=== PATIENT | male | born 1990 | race Caucasian/White ===

== ENCOUNTER 2017-07-30 12:30 | Emergency (ER) | payer OTHER ==
[2017-07-30 12:43] VITALS: TEMP 99; BMI 27.1
[2017-07-30] MEDS ORDERED: METOCLOPRAMIDE HCL INJECTION 10 MG/2 ML VIAL IVPB ONE (12:52)
[2017-07-30] MEDS ORDERED: SODIUM CHLORIDE 1,000 ML IV STA (12:52)
[2017-07-30] MEDS ORDERED: ACETAMINOPHEN 1000 MG/100 ML VIAL (NON FORMULARY) IVPB ONE (12:52)
[2017-07-30] MEDS ORDERED: ACETAMINOPHEN INJECTION 100 ML IVPB ONE (12:56)
--- NOTE | 2017-07-30 13:03 | PDOC ---
History of Present Illness - General Chief Complaint: Headache Stated Complaint: HEADACHE Time Seen by Provider: 07/30/17 12:33 - History of Present Illness Initial Comments: 07/30/17 12:59 26 M with no PMH Presents to ED with 4 days of intermittent headaches, chills, and fevers. Pt states that he has felt ill since Thursday of this week. His girlfriend's sister was sick with similar symptoms prior to his getting sick. He reports right sided headache. Denies neck stiffness. States that he has been taking advil with temporary relief of his headache, but it keeps recurring. Pt denies thunderclap headache. Denies worst headache of life. Pt states that he had a similar episode years ago that resolved on its own. Pt denies any visual changes, denies confusion, denies weakness/numbness in any extremity, denies dizziness. Pt reports subjective fevers and chills at home but has not taken his temp. Past History - Past Medical History Allergies/Adverse Reactions: Allergies Allergy/AdvReac Type Severity Reaction Status Date / Time No Known Allergies Allergy Verified 07/30/17 12:34 Home Medications: Ambulatory Orders Acetaminophen [Tylenol] 325 mg PO ONCE 07/30/17 COPD: No Other medical history: ADHD - Suicide/Smoking/Psychosocial Hx Smoking History: Never smoked Hx Alcohol Use: Yes (OCCASIONAL) Drug/Substance Use Hx: No Substance Use Type: None Review of Systems - Review of Systems Comments:: 07/30/17 13:01 "GENERAL/CONSTITUTIONAL: + fever and chills. No weakness. HEAD, EYES, EARS, NOSE AND THROAT: No change in vision. No ear pain or discharge. No sore throat. CARDIOVASCULAR: No chest pain or shortness of breath. RESPIRATORY: No cough, wheezing, or hemoptysis. GASTROINTESTINAL: No nausea, vomiting, diarrhea or constipation. GENITOURINARY: No dysuria, frequency, or change in urination. MUSCULOSKELETAL: No joint or muscle swelling or pain. No neck or back pain. SKIN: No rash NEUROLOGIC: + headache, no neck stiffness, no vertigo, loss of consciousness, or change in strength/sensation. ENDOCRINE: No increased thirst. No abnormal weight change. HEMATOLOGIC/LYMPHATIC: No anemia, easy bleeding, or history of blood clots. ALLERGIC/IMMUNOLOGIC: No hives or skin allergy. " *Physical Exam - Vital Signs Last Vital Signs Temp Pulse Resp BP Pulse Ox 99.0 F 78 16 140/96 99 07/30/17 12:33 07/30/17 12:33 07/30/17 12:33 07/30/17 12:33 07/30/17 12:33 - Physical Exam Comments: 07/30/17 13:01 "GENERAL: Awake, alert, and fully oriented, in no acute distress HEAD: No signs of trauma EYES: PERRLA, EOMI, sclera anicteric, conjunctiva clear ENT: TMs wnl, Auricles normal inspection, hearing grossly normal, nares patent, oropharynx clear without exudates. Moist mucosa NECK: + R sided lymphadenopathy, Normal ROM, supple LUNGS: Breath sounds equal, clear to auscultation bilaterally. No wheezes, and no crackles HEART: Regular rate and rhythm, normal S1 and S2, no murmurs, rubs or gallops ABDOMEN: Soft, nontender, normoactive bowel sounds. No guarding, no rebound. No masses EXTREMITIES: Normal range of motion, no edema. No clubbing or cyanosis. No cords, erythema, or tenderness NEUROLOGICAL: Cranial nerves II through XII intact. 5/5 strength and sensation in all extremities, Normal speech, normal gait, normal cerebellar function SKIN: Warm, Dry, normal turgor, no rashes or lesions noted. " ED Treatment Course - LABORATORY CBC & Chemistry Diagram: 07/30/17 13:10 07/30/17 13:10 - RADIOLOGY Radiology Studies Ordered: Category Date Time Status CHEST PA & LAT [RAD] Stat Radiology 07/30/17 12:52 Ordered Medical Decision Making - Medical Decision Making 07/30/17 13:02 26 M with headache, fevers and chills x 4 days. Likely viral syndrome. Pt with no signs of meningismus on exam, mental status normal with no nuchal rigidity. No red flags for SAH or other acute intracranial pathology. - Labs - CXR, UA - IVF, tylenol, reglan - reassess 07/30/17 15:09 CXR clear Labs unremarkable. Pt reassessed s/p IVF, tylenol, reglan Pt states his headache is significantly improved. Repeat exam continues to show no neuro deficits. Equal strength in all extremities. Steady gait. No cerebellar signs. Normal mental status. I discussed with pt strict return precautions. If headache returns or if he develops any other concerning symptoms, he is to return to ER immediately. Pt expresses understanding. Pt is well appearing, with normal vitals. Clinically stable for DC at this time. I discussed the physical exam findings, ancillary test results and final diagnoses with the patient. I answered all of the patient's questions. The patient was satisfied with the care received and felt comfortable with the discharge plan and treatment plan. The patient agrees to follow up with the primary care physician within 24-72 hours. *DC/Admit/Observation/Transfer Diagnosis at time of Disposition: Headache - Discharge Dispostion Disposition: HOME Condition at time of disposition: Good - Referrals Referrals: Jason Ring MD [Staff Physician] - - Patient Instructions Printed Discharge Instructions: DI for Headache Additional Instructions: You likely have a viral illness. Take tylenol or motrin as needed for headaches and drink plenty of fluids. If you experience worsening headaches, neck stiffness, fevers, vomiting, or any other concerning symptoms, return to the ER immediately. Otherwise, follow up with your primary doctor within 1 week. You should also see a neurologist for further evaluation of your headaches. Call the number provided to make an appointment. - Post Discharge Activity Forms/Work/School Notes: Back to Work - Attestations Physician Attestion: 07/30/17 15:12 I, Dr. Jamal Angelo MD, attest that this document has been prepared under my direction and personally reviewed by me in its entirety. I further attest, that it accurately reflects all work, treatment, procedures and medical decision -making performed by me.
[2017-07-30 13:32] LABS: URINE APPEARANCE Clear; URINE BILIRUBIN 2+ (NEGATIVE); URINE GLUCOSE (UA) Negative (NEGATIVE); URINE KETONE 1+ (NEGATIVE); URINE LEUK ESTERASE Negative (NEGATIVE); URINE NITRITE Negative (NEGATIVE)
[2017-07-30 13:39] LABS: BASO % 1.5 % (0-2.0); EOS % 1.4 % (0-4.5); HEMATOCRIT 47.8 % (35.4-49); HEMOGLOBIN 16.7 GM/dl (11.7-16.9); LYMPH % 11.9 % (8-40); MCH 31.1 pg (25.7-33.7); MEAN PLT VOLUME 8.8 fl (7.5-11.1); MONO % 12.7 % (3.8-10.2); NEUT % 72.5 % (42.8-82.8); PLATELET COUNT 217 K/MM3 (134-434); RBC 5.37 M/mm3 (4.00-5.60); RDW 11.8 % (11.9-15.9); WHITE BLOOD COUNT 10.2 K/mm3 (4.0-10.8)
[2017-07-30 14:45] LABS: URINE BLOOD Trace-lysed (NEGATIVE); URINE COLOR DK YELLOW; URINE PROTEIN 2+ (NEGATIVE)
[2017-07-30 15:00] LABS: ALBUMIN 4.4 g/dl (3.5-5.0); ALK PHOS 64 U/L (32-92); ANION GAP 8 (8-16); BILIRUBIN,TOTAL 1.4 mg/dl (0.2-1.0); BLOOD UREA NITROGEN 13 mg/dl (7-18); CALCIUM 9.5 mg/dl (8.4-10.2); CHLORIDE 101 mmol/L (98-107); CO2 26 mmol/L (22-28); GLUCOSE,RANDOM 96 mg/dl (74-106); POTASSIUM 3.9 mmol/L (3.5-5.1); SGOT/AST 27 U/L (10-42); SGPT/ALT 29 U/L (10-40); SODIUM 135 mmol/L (136-145); TOT PROT 8.1 g/dl (6.4-8.3)
[2017-07-30 15:24] VITALS: BP 142/98; PULSE 68
[2017-07-30] MEDS ORDERED: KETOROLAC TROMETHAMINE 30 MG/1 ML VIAL IVPUSH ONE (15:39)
[2017-07-30] MEDS ORDERED: KETOROLAC TROMETHAMINE 30 MG/1 ML VIAL ONE (15:40)
[2017-07-30 15:47] LABS: EPI CELLS NONE SEEN /HPF; URINE BACTERIA NONE SEEN /hpf (NEGATIVE); URINE RBC 0-1 /hpf (0-3); URINE WBC 0-1 (0-2)
== END 2017-07-30 16:12 | disposition home or self-care (01) ==
LOC: FER 12:30
PROC: 3E033NZ Introduction of Analgesics, Hypnotics, Sedatives into Peripheral Vein, Percutaneous Approach (ICD-10-PCS; principal; 2017-07-30)
PROC: 3E0333Z Introduction of Anti-inflammatory into Peripheral Vein, Percutaneous Approach (ICD-10-PCS; 2017-07-30)
PROC: 3E033GC Introduction of Other Therapeutic Substance into Peripheral Vein, Percutaneous Approach (ICD-10-PCS; 2017-07-30)
PROC: 3E0337Z Introduction of Electrolytic and Water Balance Substance into Peripheral Vein, Percutaneous Approach (ICD-10-PCS; 2017-07-30)
DX: R51 Headache (principal)
CPT/HCPCS: 36415; 71046-TC-FY; 80053; 81003; 81015; 84443; 85025; 86308; 87389; 99283-25; J0131; J7030

== ENCOUNTER 2017-08-27 07:01 | Observation (INO) | payer OTHER ==
[2017-08-27 07:15] VITALS: BMI 27.1
--- NOTE | 2017-08-27 07:31 | PDOC ---
Attending Attestation - HPI HPI: 08/27/17 08:56 The patient is a 26 year old male, with a past medical history of ADHD (not currently on medication), who presents to the emergency department with dizziness since approximately 4PM yesterday afternoon. The patient describes his dizziness as if the room is spinning. He reports that his dizziness persisted even after he laid down and is a/w multiple episodes of NBNB emesis. The patient denies headache. The patient denies fever, chills, shortness of breath, chest pain, abdominal pain, focal weakness/numbness. The patient reports that he is on prednisone taper for an upper respiratory infection. Denies recent travel. Allergies: None reported. Past Surgical History: None reported. Social History: Non-smoker. Reports occasional alcohol use. Denies drug use. - Physicial Exam PE: 08/27/17 08:57 GENERAL: Awake, alert, and fully oriented, in no acute distress, appears uncomfortable. HEAD: No signs of trauma. EYES: PERRLA, EOMI, sclera anicteric, conjunctiva clear. ENT: Auricles normal inspection, hearing grossly normal, nares patent, oropharynx clear without exudates. Moist mucosa. NECK: Normal ROM, supple, no lymphadenopathy, JVD, or masses. LUNGS: Breath sounds equal, clear to auscultation bilaterally. No wheezes, and no crackles. HEART: Regular rate and rhythm, normal S1 and S2, no murmurs, rubs or gallops. ABDOMEN: Soft, nontender, normoactive bowel sounds. No guarding, no rebound. No masses. EXTREMITIES: Normal range of motion, no edema. No clubbing or cyanosis. No cords , erythema, or tenderness. BACK: No midline spinal tenderness in cervical/thoracic/lumbar region. NEUROLOGICAL: Normal speech, cranial nerves intact, negative pronator drift, 5/ 5 strength in all 4 extremities, normal sensation to light touch in all 4 extremities, normal cerebellar exam, normal gait, normal reflexes and tone. SKIN: Warm, dry, normal turgor, no rashes or lesions noted. - Medical Decision Making 08/27/17 10:59 Documentation prepared by Fawn Wilson, acting as medical file clerk for Gigi Turner MD. <Fawn Wilson - Last Filed: 08/27/17 10:59> - Resident Resident Name: Chantel Flores I - ED Attending Attestation I have performed the following: I have examined & evaluated the patient, The case was reviewed & discussed with the resident, I agree w/resident's findings & plan, Exceptions are as noted - Medical Decision Making 08/27/17 08:12 26yo M hx ADHD (no longer on meds for many years) presents to the ED with positional room spinning dizziness since 4pm yesterday a/w N/V. Vitals wnl. Pt appears uncomfortable, and able to illicit sxs by opening eyes. Likely peripheral vertigo, pt has no headache, no focal deficits or risk factors for central vertigo. Plan: -basic labs -UA -IVF, reglan, meclizine -reassess 08/27/17 10:20 pt feels better, able to ambulate in the ED now but still with some room spinning dizziness. Will give valium for more symptom control and reassess Pt offered CTH given persistent sx and recent headache but states he feels better and will f/u as an outpt Will reassess 08/27/17 11:21 Pt persistently with room spinning. Given another 25mg dose of meclizine ( initially got 12.5). If dizziness persistent will consider imaging/neuro c/s. 08/27/17 16:21 CTH neg. Pt persistently vertiginous. Neuro c/s recommends obs, MRI triple study which has been ordered. Pt admitted to hospitalist for further mgmt. <Gigi Turner - Last Filed: 08/28/17 07:57>
--- NOTE | 2017-08-27 07:35 | PDOC ---
History of Present Illness - General Chief Complaint: Lightheaded Stated Complaint: VOMITING/DIZZINESS History Source: Patient, Significant Other Exam Limitations: No Limitations - History of Present Illness Initial Comments: 08/27/17 07:40 Pt is a 26 yo M with PMHx of ADHD (no longer on medication), now presenting with dizziness and vomiting since 4pm yesterday. 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 The dizziness occurs when his eyes are open and when he moved, even while lying down. No hearing loss or tinnitus, no ear discharge. Since 4pm yesterday, he describes up to 40 episodes of recently ingested non bloody vomit. Then he had fever and a sorethroat. Pt feels improvement of the sorethroat since the diagnosis of uveitis, but not complete resolution. The cold cut had been in his fridge for about a week prior. No diarrhea. Pt passed one episode of normal brown stool since the onset of vomiting, and now feels constipated. He only noticed recent abdominal cramps today. Pt describes a generalized headache 2/10, that he does not think is related to the dizziness. He has had similar headaches in the past relieved by exedrine. He is currently on prednisone eye drop taper for uveitis diagnosed about a month ago.Never been diagnosed with a migraine, no hx of seizures. There is no blurring of vision, no facial droop, no hx of bug bites, no joint swelling or rashes. No fever, no neck stiffness, no cough or nasal congestion, no cough, palpitation. No dysuria or hematuria. 08/27/17 08:27 Timing/Duration: constant Severity: moderate Associated Symptoms: reports: nausea/vomiting. denies: chest pain, cough, diaphoresis, fever/chills Past History - Past Medical History Allergies/Adverse Reactions: Allergies Allergy/AdvReac Type Severity Reaction Status Date / Time No Known Allergies Allergy Verified 08/27/17 07:12 Home Medications: Ambulatory Orders Prednisolone 0.12% Ophthalmic [Pred Mild 0.12% -] 1 drop OU BID 08/27/17 COPD: No Psychiatric Problems: Yes (adhd) - Suicide/Smoking/Psychosocial Hx Smoking History: Never smoked Have you smoked in the past 12 months: No Information on smoking cessation initiated: No Hx Alcohol Use: Yes (OCCASIONAL) Drug/Substance Use Hx: No Substance Use Type: None Review of Systems - Review of Systems Able to Perform ROS?: Yes Is the patient limited Romanian proficient: No Constitutional: No: Chills, Fever, Night Sweats HEENTM: Yes: Throat Pain. No: Blurred Vision, Tearing, Nose Congestion Respiratory: No: Cough, Orthopnea, Shortness of Breath, Stridor, Wheezing, Productive cough Cardiac (ROS): No: Chest Pain, Edema, Palpitations, Syncope ABD/GI: Yes: Nausea, Vomiting. No: Abdominal Distended, Abd. Pain w/ defecation , Diarrhea : No: Burning, Dysuria, Frequency, Hematuria Musculoskeletal: No: Joint Pain, Joint Swelling, Neck Pain, Joint Stiffness Neurological: Yes: Headache, Dizziness. No: Numbness, Paresthesia, Seizure, Tingling, Tremors *Physical Exam - Vital Signs Last Vital Signs Temp Pulse Resp BP Pulse Ox 98.2 F 81 18 135/81 95 08/27/17 07:13 08/27/17 07:13 08/27/17 07:13 08/27/17 07:13 08/27/17 07:13 - Physical Exam General Appearance: Yes: Appropriately Dressed, Moderate Distress HEENT: positive: EOMI, MICHELLE, Tonsillar Erythema, Other ( photophobia). negative : Scleral Icterus (L), Muffled/Hoarse voice, Nasal Congestion, Sinus Tenderness Neck: positive: Supple. negative: Tender, Stridor Respiratory/Chest: positive: Lungs Clear, Normal Breath Sounds, Respiratory Distress Cardiovascular: positive: Regular Rate, S1, S2 Gastrointestinal/Abdominal: positive: Tender (Vague tenderness worse in suprapubic and LLQ), Increased Bowel Sounds Musculoskeletal: positive: CVA Tenderness (R) (Vague R flank tenderness) Extremity: positive: Normal Inspection. negative: Coldness Integumentary: positive: Dry, Warm Neurologic: positive: Fully Oriented, Alert, Motor Strength 5/5. negative: EOM Palsy, Facial Droop, Numbness ED Treatment Course - LABORATORY CBC & Chemistry Diagram: 08/27/17 08:01 08/27/17 08:01 Medical Decision Making - Medical Decision Making 08/27/17 08:37 Dizziness prior to nausea and vomiting makes food poisoning less likely Patient appeared to have photophobia without neck stiffness or fever, does not live in a dorm or yarsanism setting but will go ahead and do CBC, CMP Patient had a tender suprapubic area, with a vague R quadrant tenderness UA, Urine culture Will give reglan- for the constipation and headache and give meclizine with 1 L normal saline 08/27/17 08:42 Patient has an elevated WBC-12.2 (on prednisone eye drops x 1 month) with neutrophilia 08/27/17 08:43 Considering peripheral vertigo- dizziness with previous URTI, no associated headache, no hearing loss, 08/27/17 08:54 Pending UA 08/27/17 09:26 BP- sitting 135/86, 112, sitting-132/77, 106 Patient still dizzy, no drift, able to walk Will add PO 5mg valium, and 1L Normal saline 08/27/17 10:23 Patient's step mother came in and discussed with the nurse but left before I could speak with her Concerned about sequence of symptoms-headaches then dizziness Discussed with patient and he does not want a CT head now. Says he can follow up as an outpatient with a neurologist For likely discharge to follow up with an neurologist/ ENT as an outpatient 08/27/17 10:35 Consulted and spoke with DR Simons - he needs CT head, ESR and Lyme titers 08/27/17 11:40 Will put him as ED ob s and [employer] hospitalist 08/27/17 11:[address] head. Patient was signed out to Dr Carrasco to follow up with hospitalist and Dr Simons 08/27/17 12:09 *DC/Admit/Observation/Transfer Diagnosis at time of Disposition: Dizziness, Peripheral vertigo - Discharge Dispostion Disposition: HOME Condition at time of disposition: Fair Admit: No - Referrals Referrals: Venkata Simons MD [Staff Physician] - 1 week (Recent headaches, nausea, vomiting with dizziness. No fevers or neck stiffness. URTI about a month ago, tapering off prednisone eyedrops for uveitis) - Patient Instructions Printed Discharge Instructions: DI for Vertigo Additional Instructions: You were seen here for dizziness and nausea and vomiting after having an upper respiratory tract infection a couple of weeks ago We did blood and urine tests, that did not reveal any problems We gave you IV fluids and medications to make the dizziness better Please do not drive or operate heavy machinery if you still feel dizzy Please follow up with your primary care doctor We are also referring you to a neurologist/and Ear Nose Throat Surgeon If you feel you are not getting better, and have worsening headaches, hearing loss, weakness of any part of your body, please return to the emergency room. - Post Discharge Activity Forms/Work/School Notes: Back to Work - Attestations Physician Attestion: 08/27/17 11:15 Chantel Flores MD
[2017-08-27] MEDS ORDERED: SODIUM CHLORIDE 1,000 ML IV STA (07:39)
[2017-08-27] MEDS ORDERED: ONDANSETRON 4 MG/2 ML VIAL IVPB ONE (07:42)
[2017-08-27] MEDS ORDERED: METOCLOPRAMIDE HCL INJECTION 10 MG/2 ML VIAL IVPUSH ONE (07:48)
[2017-08-27] MEDS ORDERED: MECLIZINE HCL 12.5 MG TABLET PO ONE (07:49)
[2017-08-27] MEDS ORDERED: MECLIZINE HCL 12.5 MG TABLET ONE ×3 (07:53→11:20)
[2017-08-27] MEDS ORDERED: METOCLOPRAMIDE HCL INJECTION 10 MG/2 ML VIAL ONE (07:53)
[2017-08-27 08:27] LABS: BASO % 0.4 % (0-2.0); EOS % 0.8 % (0-4.5); HEMATOCRIT 42.5 % (35.4-49); HEMOGLOBIN 15.1 GM/dL (11.7-16.9); LYMPH % 8.9 % (8-40); MCH 31.4 pg (25.7-33.7); MCHC 35.4 g/dl (32.0-35.9); MEAN CELL VOLUME 88.7 fl (80-96); MEAN PLT VOLUME 8.9 fl (7.5-11.1); MONO % 5.2 % (3.8-10.2); NEUT % 84.7 % (42.8-82.8); PLATELET COUNT 182 K/MM3 (134-434); RBC 4.79 M/mm3 (4.00-5.60); RDW 13.5 % (11.9-15.9); WHITE BLOOD COUNT 12.2 K/mm3 (4.0-10.0)
[2017-08-27 08:44] LABS: ALBUMIN 4.4 g/dl (3.4-5.0); ALK PHOS 64 U/L (45-117); ANION GAP 6 (8-16); BILIRUBIN,TOTAL 1.7 mg/dL (0.2-1.0); BLOOD UREA NITROGEN 17 mg/dL (7-18); CALCIUM 9.2 mg/dL (8.5-10.1); CHLORIDE 105 mmol/L (98-107); CO2 27 mmol/L (21-32); GLUCOSE,RANDOM 100 mg/dL (74-106); POTASSIUM 3.9 mmol/L (3.5-5.1); SGOT/AST 15 U/L (15-37); SGPT/ALT 26 U/L (12-78); SODIUM 138 mmol/L (136-145); TOT PROT 7.7 g/dl (6.4-8.2)
[2017-08-27] MEDS ORDERED: SODIUM CHLORIDE 0.9% 500 ML INFUS.BAG IV ONE ×2 (08:49→10:22)
[2017-08-27 09:42] LABS: URINE APPEARANCE CLEAR; URINE BILIRUBIN NEGATIVE (<2.0 mg/dL); URINE COLOR AMBER; URINE GLUCOSE (UA) NEGATIVE (NEGATIVE); URINE KETONE 2+ (NEGATIVE); URINE LEUK ESTERASE NEGATIVE (NEGATIVE); URINE NITRITE NEGATIVE (NEGATIVE); URINE UROBILINOGEN 4.0 E.U/dl mg/dL (0.2-1.0)
[2017-08-27 09:43] LABS: URINE PROTEIN 1+ (NEGATIVE)
[2017-08-27 09:46] LABS: EPI CELLS RARE /HPF (FEW); URINE MUCUS FEW
[2017-08-27] MEDS ORDERED: diazePAM 5 MG TABLET PO ONE (10:27)
[2017-08-27] MEDS ORDERED: diazePAM 5 MG TABLET ONE (10:29)
[2017-08-27] MEDS ORDERED: MECLIZINE HCL 25 MG TABLET (FP) PO ONE (11:18)
[2017-08-27] MEDS ORDERED: LORATADINE 10 MG TABLET PO ONE (12:14)
--- NOTE | 2017-08-27 12:37 | PDOC ---
*Physical Exam - Vital Signs Last Vital Signs Temp Pulse Resp BP Pulse Ox 98.2 F 70 18 109/65 98 08/27/17 07:13 08/27/17 11:13 08/27/17 07:13 08/27/17 11:13 08/27/17 11:13 - Physical Exam Comments: 08/27/17 12:36 Pt signed out to me by Dr. Flores --26yo M with no real medical history who presented with positional dizziness which can be elicited by opening eyes. Dr. Simons aware of patient as well as hospitalist team. Awaiting CT head and report back to Dr. Simons. ESR and lyme titer added to initial labs ED Treatment Course - LABORATORY CBC & Chemistry Diagram: 08/27/17 08:01 08/27/17 08:01 - ADDITIONAL ORDERS Additional order review: Laboratory Results 08/27/17 08/27/17 09:30 08:01 Sodium 138 Potassium 3.9 Chloride 105 Carbon Dioxide 27 Anion Gap 6 L BUN 17 Creatinine 1.0 Creat Clearance w eGFR > 60 Random Glucose 100 Calcium 9.2 Total Bilirubin 1.7 H AST 15 ALT 26 Alkaline Phosphatase 64 Total Protein 7.7 Albumin 4.4 Urine Color Gloria Urine Appearance Clear Urine pH 5.0 Ur Specific [place] 1.030 Urine Protein 1+ H Urine Glucose (UA) Negative Urine Ketones 2+ H Urine Blood Negative Urine Nitrite Negative Urine Bilirubin Negative Urine Urobilinogen 4.0 e.u/dl Ur Leukocyte Esterase Negative Urine WBC (Auto) 4 Urine RBC (Auto) 4 Ur Epithelial Cells Rare Urine Mucus Few 08/27/17 08:01 RBC 4.79 MCV 88.7 MCHC 35.4 RDW 13.5 MPV 8.9 Neutrophils % 84.7 H Lymphocytes % 8.9 Monocytes % 5.2 Eosinophils % 0.8 Basophils % 0.4 - Medications Given in the ED: ED Medications Discontinued Medications Generic Name Dose Route Start Last Admin Trade Name Freq PRN Reason Stop Dose Admin Diazepam 5 mg 08/27/17 10:27 08/27/17 10:30 Valium - PO 08/27/17 10:28 5 mg ONCE ONE Administration Sodium Chloride 1,000 mls @ 1,000 mls/hr 08/27/17 07:39 08/27/17 08:07 Normal Saline - IV 08/27/17 08:38 1,000 mls/hr ASDIR STA Administration Meclizine HCl 12.5 mg 08/27/17 07:49 08/27/17 08:45 Antivert - PO 08/27/17 07:50 12.5 mg ONCE ONE Administration Meclizine HCl 25 mg 08/27/17 11:18 08/27/17 11:20 Antivert - PO 08/27/17 11:19 25 mg ONCE ONE Administration Metoclopramide HCl 10 mg 08/27/17 07:48 08/27/17 08:07 Reglan Injection - IVPUSH 08/27/17 07:49 10 mg ONCE ONE Administration Ondansetron HCl 4 mg 08/27/17 07:42 08/27/17 08:12 Zofran Injection IVPB 08/27/17 07:43 Not Given ONCE ONE Sodium Chloride 1,000 ml 08/27/17 08:49 08/27/17 08:56 Normal Saline - IV 08/27/17 08:50 1,000 ml ONCE ONE Administration Sodium Chloride 1,000 ml 08/27/17 10:22 08/27/17 10:30 Normal Saline - IV 08/27/17 10:23 1,000 ml ONCE ONE Administration Medical Decision Making - Medical Decision Making 08/27/17 12:43 On reassessment pt remains dizzy, however has slightly improved. Reports the reglan working for his nausea. No nystagmus on physical exam with none elicited with EOMI which remain intact. 08/27/17 13:[address] without any intracranial pathology Pt continues to have dizziness with difficulty walking Discussed with Dr. Simons who will see patient tomorrow Will contact hospitalist team for admission: suspected labrynthitis vs. r/o posterior fossa circulation deficit? --Will likely need MRI *DC/Admit/Observation/Transfer Diagnosis at time of Disposition: Dizziness, Peripheral vertigo - Discharge Dispostion Disposition: HOME Condition at time of disposition: Fair - Referrals - Patient Instructions - Post Discharge Activity
[2017-08-27] MEDS ORDERED: ACETAMINOPHEN 1000 MG/100 ML VIAL (NON FORMULARY) IVPB ONE (15:09)
[2017-08-27] MEDS ORDERED: ACETAMINOPHEN INJECTION 100 ML IVPB ONE (15:10)
--- NOTE | 2017-08-27 15:57 | HP ---
Admitting History and Physical - Admission Chief Complaint: dizziness and vomiting History of Present Illness: This is a 26 year old male with pmhx of ADHD. He presented to the ED after persistent dizziness since 4pm yesterday afternoon with accompanied vomiting > 40 times and unsteady gait. Two weeks ago the patient went to a ENT for swollen cervical lymph nodes, he was prescribed steroids. Following the steroids his throat improved but, he started having head aches, uvitis, and blurry vision. He was prescribed eye drops which improved the uvitis, but the head aches persisted and have continued for the past 2 weeks. He is not photo nor phono sensitive. He is on an eye drop steroid taper and denies recent head trauma. Currently, he is less dizzy then when he came to the ED however the dizziness which he describes as the room spinning worsens with body position changes. He states his head aches are diffuse and came before the dizziness. He denies sick contacts, recent hikes, exposures to chemicals or environmental elements. 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 Pt denies sob, chest pain, rashes, fever, chills. Dizziness improves with eyes closed, eugene hallpike test neg. 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) - Smoking History Smoking history: Never smoked Have you smoked in the past 12 months: No - Alcohol/Substance Use Hx Alcohol Use: Yes (OCCASIONAL) Home Medications - Allergies Allergies/Adverse Reactions: Allergies Allergy/AdvReac Type Severity Reaction Status Date / Time No Known Allergies Allergy Verified 08/27/17 07:12 - Home Medications Home Medications: Ambulatory Orders Prednisolone 0.12% Ophthalmic [Pred Mild 0.12% -] 1 drop OU BID 08/27/17 Review of Systems - Review of Systems Constitutional: reports: No Symptoms Eyes: reports: Blurred Vision HENT: reports: No Symptoms Neck: reports: No Symptoms Cardiovascular: reports: No Symptoms Respiratory: reports: No Symptoms Gastrointestinal: reports: No Symptoms Genitourinary: reports: No Symptoms Musculoskeletal: reports: No Symptoms Integumentary: reports: No Symptoms Neurological: reports: Dizziness Endocrine: reports: No Symptoms Hematology/Lymphatic: reports: No Symptoms Psychiatric: reports: No Symptoms Physical Examination Vital Signs: Vital Signs Temperature 98 F 08/27/17 15:13 Pulse Rate 69 08/27/17 15:13 Respiratory Rate 18 08/27/17 07:13 Blood Pressure 143/87 08/27/17 15:13 O2 Sat by Pulse Oximetry (%) 98 08/27/17 15:13 Constitutional: Yes: Calm Eyes: Yes: Conjunctiva Clear, Other (No nystagmus) HENT: Yes: Atraumatic Neck: Yes: Supple Cardiovascular: Yes: Regular Rate and Rhythm, S1, S2 Respiratory: Yes: Regular, CTA Bilaterally Gastrointestinal: Yes: Normal Bowel Sounds, Soft Musculoskeletal: Yes: WNL Extremities: Yes: WNL Edema: No Integumentary: Yes: WNL Neurological: Yes: Alert, Oriented, Cran Nerves II-XII Intact Labs: CBC, BMP 08/27/17 08:01 08/27/17 08:01 Imaging - Results Cat Scan: Report Reviewed (minimal ethmoid sinusitis) Problem List - Problems (1) Dizziness Code(s): R42 - DIZZINESS AND GIDDINESS (2) Headache Code(s): R51 - HEADACHE Assessment/Plan Assessment: 26 year old male presented with persistent dizziness, head aches, and vomiting. Plan: 1. Persistent Dizziness - CT head noted, mild ethmoid sinusitis - Improved with meclazine; continue PRN - Lyme titer pending - ESR elevated - Brain MRI ordered r/o labyrinthitis - MRA head and neck r/o posterior neck defect - Check EKG - Follow u tox - Neurology consulted 2. Headaches - Diffuse in nature - R/o migraines? vs eye drops? - Defer to neuro 3. Vomiting - Zofran prn 4. Uveitis - Continue drops, pt has own 5. Leukocytosis - Likely due to steroid eye drops 6. HTN - Possibly reactive vs head nani - Trend and treat as needed 6. DVT - SCDs, oob ambulate Visit type - Emergency Visit Emergency Visit: Yes ED Registration Date: 08/27/17 Care time: The patient presented to the Emergency Department on the above date and was hospitalized for further evaluation of their emergent condition. - New Patient This patient is new to me today: Yes Date on this admission: 08/27/17 - Critical Care Critical Care patient: No Hospitalist Screening - Colonoscopy Questionnaire Colonoscopy Questionnaire: Colonoscopy Questionnaire - Patient: 50 - 75 years old and never had a screening colonoscopy: Unknown History of colon or rectal polyps, or CA: Unknown History of IBD, Crohn's disease or UC: Unknown History of abdominal radiation therapy as a child: Unknown - Relative: 1 with colon or rectal CA, or polyps at age 60 or younger: Unknown Colon or rectal CA diagnosed at age 45 or younger: Unknown Multiple relatives with colon or rectal CA: Unknown - Outcome: Screening Result: Negative Screen
[2017-08-27] MEDS ORDERED: ONDANSETRON 4 MG/2 ML VIAL IVPUSH PRN (16:11)
[2017-08-27 19:28] LABS: COCAINE, UR NEGATIVE ng/ml (CUTOFF=300); METHADONE, UR NEGATIVE ng/ml (CUTOFF=300); OPIATES, URI NEGATIVE ng/ml (CUTOFF=300); PHENCYCLIDINE,URINE NEGATIVE ng/ml (CUTOFF=25); URINE AMPHETAMINES NEGATIVE ng/ml (CUTOFF=500); URINE BARBITURATES NEGATIVE ng/ml (CUTOFF=200)
[2017-08-27 19:30] LABS: URINE BENZODIAZEPINES POSITIVE ng/ml (CUTOFF=200)
--- NOTE | 2017-08-27 21:10 | CONSULT ---
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 6 weeks ago he developed diffuse cervical lymphadenopathy and pressing headaches. He was given prednisone by ENT (Dr. Diaz) and both headaches and swelling resolved over a few weeks. He recalls having this symptom complex " many years ago." As the swelling and headaches were resolving, about 3 weeks ago , he developed blurred vision and red eyes. He saw Dr. Brad Vásquez who diagnosed bilateral Uveitis and gave prednisone gtts. Yesterday, around 4 PM, the patient developed severe vertigo, nausea, vomiting and unsteady gait that persisted through the night. No tinnitus. No hearing loss. No concurrent headache. CT of head (reviewed): Normal MRI of brain (reviewed) normal MR Angio of the neck and brain (reviewed but not yet officially read): possible bead-like constrictions of the intracavernous carotids (R>L). Patient is much more comfortable on meclizine 25 TID. DELANEY: Normal NEURO: MS/speech: Normal CN II-XII normal except for a few beats of vertical nystagmus on upgaze Motor: No drift or tremor. Normal strength, bulk, tone and reflexes. Toes downgoing Coord: No FTN or HTS dystaxia Sensory: Normal. Romberg - Gait: slightly wide-based. IMP: Non-focal neurological exam Vertigo, probably on a Labyrinthine basis. SUGGEST: Continue meclizine 25 mg PO q 8 hrs until Pt is free of vertigo x 48 hrs. Await official reading of MR Angiogram (R/O CLERICAL SUPPORT Vasculitis). F/U Dr. Vásquez. Etiology of Uveitis? Lymphadenopathy? Neuro F/U as out patient. Thank you very much, Venkata Simons MD
[2017-08-27] MEDS: prednisoLONE ACETATE 0.12% OPTH SUSP- 5 ML BOTTLE OU SCH (22:28)
[2017-08-27] MEDS: ACETAMINOPHEN 325 MG TABLET (FP) PO PRN (22:32)
[2017-08-28] MEDS: ACETAMINOPHEN 325 MG TABLET (FP) PO PRN ×2 (05:06→18:54)
[2017-08-28] MEDS: MECLIZINE HCL 25 MG TABLET (FP) PO PRN ×2 (05:15→14:09)
[2017-08-28 07:27] LABS: BASO % 0.5 % (0-2.0); EOS % 2.6 % (0-4.5); HEMOGLOBIN 13.4 GM/dL (11.7-16.9); LYMPH % 21.4 % (8-40); MCH 31.3 pg (25.7-33.7); MCHC 35.2 g/dl (32.0-35.9); MEAN CELL VOLUME 88.9 fl (80-96); MONO % 11.7 % (3.8-10.2); NEUT % 63.8 % (42.8-82.8); PLATELET COUNT 156 K/MM3 (134-434); RBC 4.28 M/mm3 (4.00-5.60); WHITE BLOOD COUNT 7.7 K/mm3 (4.0-10.0)
[2017-08-28 07:40] LABS: ALBUMIN 3.6 g/dl (3.4-5.0); BILIRUBIN,TOTAL 1.4 mg/dL (0.2-1.0); BLOOD UREA NITROGEN 9 mg/dL (7-18); CHLORIDE 106 mmol/L (98-107); GLUCOSE,RANDOM 88 mg/dL (74-106); PHOSPHOROUS 3.5 mg/dL (2.5-4.9); POTASSIUM 3.7 mmol/L (3.5-5.1); SGOT/AST 12 U/L (15-37); SODIUM 138 mmol/L (136-145); TOT PROT 6.6 g/dl (6.4-8.2)
[2017-08-28 07:43] LABS: ALK PHOS 52 U/L (45-117); ANION GAP 8 (8-16); CALCIUM 8.3 mg/dL (8.5-10.1); CO2 24 mmol/L (21-32); CREATININE 0.8 mg/dL (0.7-1.3); SGPT/ALT 19 U/L (12-78)
--- NOTE | 2017-08-28 09:39 | EKG ---
Test Reason : Blood Pressure : / mmHG Vent. Rate : 060 BPM Atrial Rate : 060 BPM P-R Int : 158 ms QRS Dur : 086 ms QT Int : 408 ms P-R-T Axes : 020 049 026 degrees QTc Int : 408 ms NORMAL SINUS RHYTHM WITH SINUS ARRHYTHMIA NO PREVIOUS ECGS AVAILABLE Confirmed by JIGAR YORK MD ([id number]) on 08/28/2017 9:38:26 AM Referred By: Confirmed By:JIGAR YORK MD
[2017-08-28] MEDS ORDERED: PT OWN MED DRAWER 7, Y5N ONE ×2 (09:45→14:07)
[2017-08-28] MEDS: prednisoLONE ACETATE 0.12% OPTH SUSP- 5 ML BOTTLE OU SCH ×2 (09:49→21:05)
[2017-08-28] MEDS: ACETAMINOPHEN/CAFFEINE/BUTALBITAL 1 TAB PO PRN ×2 (09:49→16:15)
--- NOTE | 2017-08-28 16:22 | PN ---
Physical Exam: SUBJECTIVE: Patient seen in the solarium with his step mother in attendance. Patient reports resolution of the vomiting wants to eat. Feels feverish. OBJECTIVE: Vital Signs Period Temp Pulse Resp BP Sys/Garcia Pulse Ox Last 24 Hr 98.0 F-100.6 F 76-83 18-20 119-152/67-92 97-100 GENERAL: The patient is awake, alert, and fully oriented, in no acute distress. HEAD: Normal with no signs of trauma. EYES: PERRL, extraocular movements intact, sclera anicteric, conjunctiva clear. No ptosis. ENT: Ears normal, nares patent, oropharynx clear without exudates, moist mucous membranes. NECK: Trachea midline, full range of motion, supple. ABDOMEN: Soft, nontender, nondistended, normoactive bowel sounds, no guarding, no rebound, no hepatosplenomegaly, no masses. EXTREMITIES: no edema. NEUROLOGICAL: Normal speech, gait not observed. PSYCH: Normal mood, normal affect. SKIN: Warm, dry, normal turgor, no rashes or lesions noted Laboratory Results - last 24 hr 08/27/17 08/28/17 08/28/17 18:45 05:35 05:35 WBC 7.7 D RBC 4.28 Hgb 13.4 D Hct 38.0 MCV 88.9 MCH 31.3 MCHC 35.2 RDW 13.0 Plt Count 156 MPV 9.0 Neutrophils % 63.8 D Lymphocytes % 21.4 D Monocytes % 11.7 H D Eosinophils % 2.6 D Basophils % 0.5 ESR Sodium 138 Potassium 3.7 Chloride 106 Carbon Dioxide 24 Anion Gap 8 BUN 9 D Creatinine 0.8 Creat Clearance w eGFR > 60 Random Glucose 88 Calcium 8.3 L Phosphorus 3.5 Magnesium 2.0 Total Bilirubin 1.4 H AST 12 L ALT 19 D Alkaline Phosphatase 52 C-Reactive Protein Total Protein 6.6 Albumin 3.6 Opiates Screen Negative Methadone Screen Negative Barbiturate Screen Negative Phencyclidine Screen Negative Ur Amphetamines Screen Negative MDMA (Ecstasy) Screen Negative Benzodiazepines Screen Positive Cocaine Screen Negative U Marijuana (THC) Screen Negative Rheumatoid Factor 08/28/17 08/28/17 12:05 12:05 WBC RBC Hgb Hct MCV MCH MCHC RDW Plt Count MPV Neutrophils % Lymphocytes % Monocytes % Eosinophils % Basophils % ESR 23 H Sodium Potassium Chloride Carbon Dioxide Anion Gap BUN Creatinine Creat Clearance w eGFR Random Glucose Calcium Phosphorus Magnesium Total Bilirubin AST ALT Alkaline Phosphatase C-Reactive Protein 2.3 H Total Protein Albumin Opiates Screen Methadone Screen Barbiturate Screen Phencyclidine Screen Ur Amphetamines Screen MDMA (Ecstasy) Screen Benzodiazepines Screen Cocaine Screen U Marijuana (THC) Screen Rheumatoid Factor < 10.0 Active Medications Generic Name Dose Route Start Last Admin Trade Name Freq PRN Reason Stop Dose Admin Acetaminophen 650 mg 08/27/17 16:11 08/28/17 05:06 Tylenol - PO 650 mg Q4H PRN Administration HEADACHE 1-6 Acetaminophen/Butalbital/Caffeine 1 tablet 08/28/17 09:32 08/28/17 16:15 Fioricet - PO 1 tablet Q6H PRN Administration HEADACHE 7-10 Meclizine HCl 25 mg 08/27/17 16:13 08/28/17 14:09 Antivert - PO 25 mg Q8H PRN Administration VERTIGO Ondansetron HCl 4 mg 08/27/17 16:11 Zofran Injection IVPUSH Q6H PRN NAUSEA Prednisolone Acetate 1 drop 08/27/17 22:00 08/28/17 09:49 Pred Mild 0.12% - OU 1 drop BID YUMIKO Administration ASSESSMENT/PLAN: Patient is a 26 year old male with a significant past medical history of ADD. Approximately 6 weeks ago he developed diffuse cervical lymphadenopathy and headaches. He was given prednisone by ENT and both headaches and swelling improved. About 3 weeks ago, he developed blurred vision and red eyes. He saw Dr. Brad Vásquez who diagnosed bilateral Uveitis and gave prednisone gtts. However on 08/26, patient developed severe vertigo, nausea, vomiting and unsteady gait that persisted through the night. He also reports a headache not relieved with Tylenol. Neuro: Persistent dizziness, improving On Meclazine with some improvement CT head noted Lymes titer pending ESR, Rheumatoid factor, ELAINE screening sent, discussed with neuro EKG: SR with sinus arrhythmia Brain MRI: no abnormality, paranasal sinus disease Head CT: negative MRA neck/head: no evidence of large vessel stenosis or occulusion Utox: + benzos Rheumatology consulted Headaches, improving Started on Fiorocet Uveitis Continue home eye drops GI: Vomiting, resolved Zofran as needed Regular diet Heme: Leukocytosis, resolved Febrile overnight and this a.m. Blood cultures sent F.E.N. Fluids: Tolerating PO Electrolytes: monitor Nutrition: regular diet Prophy: Ambulation GI: deferred Visit type - Emergency Visit Emergency Visit: Yes ED Registration Date: 08/27/17 Care time: The patient presented to the Emergency Department on the above date and was hospitalized for further evaluation of their emergent condition. - New Patient This patient is new to me today: Yes Date on this admission: 08/31/17 - Critical Care Critical Care patient: No - Discharge Referral Referred to [facility] Med [facility] No
--- NOTE | 2017-08-28 18:27 | CONSULT ---
Consult Consult Specialty:: Rheumatology - History of Present Illness History of Present Illness: 26 year old male with no significant PMHx admitted with vertigo and fever and recent onset of headache, neck lymphadenopathy and bilateral uveitis. HPI. 6 weeks ago the patient developed severe headache and few days later neck pain, red eyes and cloudy vision. He was seen in an [facility] center, he did not have fever and was found to have neck lymphadenopathy. He was seen by ENT who prescribed Prednisone and antibiotics resulting in significant improvement of the tender lymphadenopathy. He was seen by ophtalmology (Dr. Vásquez), diagnosed with uveitis and started topical steroids resulting in significant improvement after 1 week. Yesterday the patient developed vertigo with nausea, vomiting and unsteady gait. At the present time the vertigo improved significantly and he has minimal headache. Yesterday the T max was 100.6 and presently it is 98.1. Recently the patient had a canker sore and he denies skin rash, joint pain or shortness of breath Work-up in the hospital: CT of head, MRI of brain, MR Angio of the neck and brain all normal. SMA-7 and livr function tests were normal. ESR 19 and CRP 2.3 (N<0.3) and urinalysis wiht protein 1+. 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) - Alcohol/Substance Use Hx Alcohol Use: Yes (OCCASIONAL) - Smoking History Smoking history: Never smoked Have you smoked in the past 12 months: No Home Medications - Allergies Allergies/Adverse Reactions: Allergies Allergy/AdvReac Type Severity Reaction Status Date / Time No Known Allergies Allergy Verified 08/27/17 07:12 - Home Medications Home Medications: Ambulatory Orders Prednisolone 0.12% Ophthalmic [Pred Mild 0.12% -] 1 drop OU BID 08/27/17 Review of Systems - Review of Systems Constitutional: reports: Malaise Eyes: reports: Blurred Vision, Other (red eyes) HENT: reports: No Symptoms Neck: reports: Swollen Glands Cardiovascular: reports: No Symptoms Respiratory: reports: No Symptoms Gastrointestinal: reports: No Symptoms Musculoskeletal: reports: No Symptoms Neurological: reports: Other (vertigo) Physical Exam Vital Signs: Vital Signs Temperature 98.1 F 08/28/17 16:20 Pulse Rate 80 08/28/17 16:20 Respiratory Rate 20 08/28/17 16:20 Blood Pressure 126/73 08/28/17 16:20 O2 Sat by Pulse Oximetry (%) 97 08/28/17 12:00 Constitutional: Yes: No Distress Eyes: Yes: WNL HENT: Yes: WNL Neck: Yes: WNL Cardiovascular: Yes: WNL Respiratory: Yes: WNL Gastrointestinal: Yes: WNL Musculoskeletal: Yes: WNL Integumentary: Yes: WNL Labs: CBC, BMP 08/28/17 05:35 08/28/17 05:35 Laboratory Tests 08/27/17 08/27/17 08/28/17 09:30 12:06 05:35 ESR 19 H Random Glucose 88 Calcium 8.3 L Phosphorus 3.5 Magnesium 2.0 AST 12 L Alkaline Phosphatase 52 C-Reactive Protein Total Protein 6.6 Albumin 3.6 Urine pH 5.0 Ur Specific [place] 1.030 Urine Protein 1+ H Urine Glucose (UA) Negative Urine Ketones 2+ H Urine Blood Negative Urine Nitrite Negative Urine Bilirubin Negative Urine Urobilinogen 4.0 e.u/dl Ur Leukocyte Esterase Negative Urine WBC (Auto) 4 Urine RBC (Auto) 4 Rheumatoid Factor 08/28/17 12:05 ESR Random Glucose Calcium Phosphorus Magnesium AST Alkaline Phosphatase C-Reactive Protein 2.3 H Total Protein Albumin Urine pH Ur Specific [place] Urine Protein Urine Glucose (UA) Urine Ketones Urine Blood Urine Nitrite Urine Bilirubin Urine Urobilinogen Ur Leukocyte Esterase Urine WBC (Auto) Urine RBC (Auto) Rheumatoid Factor < 10.0 Problem List - Problems (1) Systemic involvement of connective tissue Assessment/Plan: 26 year old male with headaches, neck lymphadenopathy, bilateral uveitis, fever and vertigo. Etiology to be determined. Rule out sarcoidosis? other? Plan: CXR, HOWARD, ch50, anti-DNAds. Code(s): M35.9 - SYSTEMIC INVOLVEMENT OF CONNECTIVE TISSUE, UNSPECIFIED
[2017-08-28 23:44] LABS: URINE APPEARANCE CLEAR; URINE BILIRUBIN NEGATIVE (<2.0 mg/dL); URINE COLOR STRAW; URINE GLUCOSE (UA) NEGATIVE (NEGATIVE); URINE KETONE NEGATIVE (NEGATIVE); URINE LEUK ESTERASE NEGATIVE (NEGATIVE); URINE NITRITE NEGATIVE (NEGATIVE); URINE PROTEIN NEGATIVE (NEGATIVE)
[2017-08-29] MEDS: ACETAMINOPHEN/CAFFEINE/BUTALBITAL 1 TAB PO PRN ×3 (00:53→14:53)
[2017-08-29] MEDS: MECLIZINE HCL 25 MG TABLET (FP) PO PRN ×2 (00:58→10:58)
[2017-08-29] MEDS ORDERED: PT OWN MED DRAWER 7, Y5N ONE (09:25)
[2017-08-29] MEDS: prednisoLONE ACETATE 0.12% OPTH SUSP- 5 ML BOTTLE OU SCH (09:48)
[2017-08-29 15:41] VITALS: BP 138/82; PULSE 82; TEMP 98.6
[2017-08-29 16:10] LABS: BASO % 0.4 % (0-2.0); EOS % 4.5 % (0-4.5); HEMATOCRIT 40.4 % (35.4-49); HEMOGLOBIN 14.6 GM/dL (11.7-16.9); LYMPH % 28.6 % (8-40); MCH 32.1 pg (25.7-33.7); MCHC 36.2 g/dl (32.0-35.9); MEAN CELL VOLUME 88.6 fl (80-96); MEAN PLT VOLUME 8.9 fl (7.5-11.1); MONO % 11.4 % (3.8-10.2); NEUT % 55.1 % (42.8-82.8); PLATELET COUNT 182 K/MM3 (134-434); RBC 4.56 M/mm3 (4.00-5.60); RDW 13.3 % (11.9-15.9); WHITE BLOOD COUNT 6.7 K/mm3 (4.0-10.0)
[2017-08-29 16:24] LABS: ALBUMIN 3.8 g/dl (3.4-5.0); ANION GAP 7 (8-16); BLOOD UREA NITROGEN 7 mg/dL (7-18); CALCIUM 8.5 mg/dL (8.5-10.1); CHLORIDE 104 mmol/L (98-107); CO2 28 mmol/L (21-32); GLUCOSE,RANDOM 81 mg/dL (74-106); MAGNESIUM 2.1 mg/dL (1.8-2.4); POTASSIUM 3.9 mmol/L (3.5-5.1); SODIUM 139 mmol/L (136-145)
[2017-08-29 16:27] LABS: ALK PHOS 58 U/L (45-117); BILIRUBIN,TOTAL 0.8 mg/dL (0.2-1.0); SGOT/AST 11 U/L (15-37); SGPT/ALT 21 U/L (12-78); TOT PROT 7.2 g/dl (6.4-8.2)
--- NOTE | 2017-08-29 17:04 | PN ---
Progress Note (short form) - Note Progress Note: NEUROLOGY FOLLOW-UP: Events reviewed and discussed with Pedrito Valentino. Afebrile today (Tmax=99). Dizziness is much improved on Meclizine 25 mg q8hrs. Pt denies headache now but reiterates that he had headaches 3-4 weeks ago when he had swollen glands. WBC= 6.7K; ESR=23 mm/hr; CRP=2.3 mg%; 1+proteinuria. Dr. Koch's Rheum consult read and appreciated. Possible MCTD. Awaiting ELAINE, Lyme titre and ID consult. MRI ofbrain and MR angio: Normal EXAM: Neck supple. Afebrile Awake, alert, In NAD CN: Normal aside from a few beats of conjugate right-beating nystagmus on right gaze No drift or tremor. Normal strength and reflexes. No FTN Dystaxia Normal gait incl base and tandem today. IMP: Labyrinthitis- improving. Etiology uncertain. SUGGEST: Await Lyme, Rheum w/u and ID opinion. D/C on Meclizine 25 mg q 8 hrs until Pt is free of vertigo x 48 hrs. Outpt f/u with Neuro, Rheum, ophthalmology, ENT and ID (if indicated). Thank you very much, Venkata Simons MD
--- NOTE | 2017-08-29 19:11 | DS ---
Physical Exam: SUBJECTIVE: Patient seen and examined, family at bedside. Father and step mom spoke to Dr. Simons regarding a possible LP procedure. Patient in agreement to follow up with ID (Dr. Vargas) on Thursday. Patient to call for an appointment. OBJECTIVE: HIV negative, tested on 07/29/2017 Lyme titer 1.81, discussed titer results with Dr. Simons and Dr. Vargas. Patient to follow up with ID on Thursday, for further workup. Denies dizziness prior to discharge, gait steady Meclizine and Fiorocet as outpatient Afebrile overnight Vital Signs Period Temp Pulse Resp BP Sys/Garcia Pulse Ox Last 24 Hr 98.3 F-99.6 F 68-92 18-20 132-140/71-82 98-98 PHYSICAL EXAM GENERAL: The patient is awake, alert, and fully oriented, in no acute distress. HEAD: Normal with no signs of trauma. EYES: PERRL, extraocular movements intact, sclera anicteric, conjunctiva clear. No ptosis. ENT: Ears normal, nares patent, oropharynx clear without exudates, moist mucous membranes. NECK: Trachea midline, full range of motion, supple. ABDOMEN: Soft, nontender, nondistended, normoactive bowel sounds, no guarding, no rebound, no hepatosplenomegaly, no masses. EXTREMITIES: no edema. NEUROLOGICAL: Normal speech, gait not observed. PSYCH: Normal mood, normal affect. SKIN: Warm, dry, normal turgor, no rashes or lesions noted LABS Laboratory Results - last 24 hr 08/27/17 08/28/17 08/29/17 12:00 20:24 15:45 WBC 6.7 RBC 4.56 Hgb 14.6 Hct 40.4 MCV 88.6 MCH 32.1 MCHC 36.2 H RDW 13.3 Plt Count 182 MPV 8.9 Neutrophils % 55.1 Lymphocytes % 28.6 D Monocytes % 11.4 H Eosinophils % 4.5 Basophils % 0.4 Sodium Potassium Chloride Carbon Dioxide Anion Gap BUN Creatinine Creat Clearance w eGFR Random Glucose Calcium Magnesium Total Bilirubin AST ALT Alkaline Phosphatase Total Protein Albumin Urine Color Straw Urine Appearance Clear Urine pH 7.0 D Ur Specific [place] 1.004 Urine Protein Negative Urine Glucose (UA) Negative Urine Ketones Negative Urine Blood Negative Urine Nitrite Negative Urine Bilirubin Negative Urine Urobilinogen 2.0 Ur Leukocyte Esterase Negative Lyme Disease IgG/IgM 1.81 H 08/29/17 15:45 WBC RBC Hgb Hct MCV MCH MCHC RDW Plt Count MPV Neutrophils % Lymphocytes % Monocytes % Eosinophils % Basophils % Sodium 139 Potassium 3.9 Chloride 104 Carbon Dioxide 28 Anion Gap 7 L BUN 7 D Creatinine 1.0 D Creat Clearance w eGFR > 60 Random Glucose 81 Calcium 8.5 Magnesium 2.1 Total Bilirubin 0.8 D AST 11 L ALT 21 Alkaline Phosphatase 58 Total Protein 7.2 Albumin 3.8 Urine Color Urine Appearance Urine pH Ur Specific [place] Urine Protein Urine Glucose (UA) Urine Ketones Urine Blood Urine Nitrite Urine Bilirubin Urine Urobilinogen Ur Leukocyte Esterase Lyme Disease IgG/IgM HOSPITAL COURSE: Date of Admission:08/27/17 Date of Discharge: 08/29/17 Patient is a 26 year old male with a significant past medical history of ADD. Approximately 6 weeks ago he developed diffuse cervical lymphadenopathy and headaches. He was given prednisone by ENT and both headaches and swelling improved. About 3 weeks ago, he developed blurred vision and red eyes. He saw Dr. Brad Vásquez who diagnosed bilateral Uveitis and gave prednisone gtts. However on 08/26, patient developed severe vertigo, nausea, vomiting and unsteady gait that persisted through the night. He also reports a headache not relieved with Tylenol. Neuro: Persistent dizziness, improving On Meclazine with improvement, able to ambulate with a steady gait CT head noted Lymes titer 1.81, discussed with Dr. Simons and Dr. Vargas Patient to follow up with Dr. Vargas on Thursday. ESR, Rheumatoid factor, ELAINE screening sent, discussed with neuro EKG: SR with sinus arrhythmia Brain MRI: no abnormality, paranasal sinus disease Head CT: negative MRA neck/head: no evidence of large vessel stenosis or occulusion Utox: + benzos Rheumatology consulted, notes reviewed Patient to see Dr. Koch for results of pending bloodwork Headaches, improving on Fiorocet Uveitis Continue home eye drops ID: Rule out acute infection Blood cultures pending Has been afebrile x 24 hours Chest xray negative HIV negative (tested on 07/29/2017 on [facility] previous visit) Patient agrees to call Dr. Vargas on Thursday for an outpatient appointment GI: Vomiting, resolved Tolerating a Regular diet Heme: Leukocytosis, resolved Afebrile overnight, low grade temps noted Blood cultures sent Minutes to complete discharge: 45 Discharge Summary Reason For Visit: VERTIGO Current Active Problems Dizziness (Acute) Peripheral vertigo (Acute) Systemic involvement of connective tissue (Acute) Condition: Improved - Instructions Diet, Activity, Other Instructions: Mr. Jose E Albright: Thank you for allowing us to care for you. Please follow up with Dr. Simons and Dr. Nguyen within 3-5 days after discharge for blood work results. Please call me if you have any questions on any of the medications or any other concerns. If your symptoms worsen, please return back to the ER. Please call Dr. Vargas first thing Thursday morning for a follow up appointment. Francheska Valentino, REESE [facility] @ [facility] [phone] Referrals: Alberto Vargas MD [Staff Physician] - (Call on Thursday to make an appointment) Venkata Simons MD [Staff Physician] - 1 week (Recent headaches, nausea, vomiting with dizziness. No fevers or neck stiffness. URTI about a month ago, tapering off prednisone eyedrops for uveitis) Lauro Koch MD [Staff Physician] - 1 Week Disposition: HOME - Home Medications Comprehensive Discharge Medication List: Ambulatory Orders Prednisolone 0.12% Ophthalmic [Pred Mild 0.12% -] 1 drop OU BID 08/27/17 Acetaminophen/Caffeine/Butalb [Fioricet -] 1 tablet PO Q6H PRN #20 tablet MDD 4 08/29/17 Meclizine HCl [Antivert -] 25 mg PO Q8H PRN #60 tablet 08/29/17 This patient is new to me today: No Emergency Visit: Yes ED Registration Date: 08/27/17 Care time: The patient presented to the Emergency Department on the above date and was hospitalized for further evaluation of their emergent condition. Critical Care patient: No - Discharge Referral Referred to [facility] Med [facility].: No
[2017-09-01 03:38] LABS: COMPLEMENT TOTAL(CH50) > 63 U/mL (42-60)
== END 2017-08-29 22:30 | disposition home or self-care (01) ==
LOC: JER 07:01 → JERBED 11:22 → J8W 19:55
PROVIDERS: ADMIT Internal Medicine; ATTEND Nurse Practitioner Family
PROC: 3E033NZ Introduction of Analgesics, Hypnotics, Sedatives into Peripheral Vein, Percutaneous Approach (ICD-10-PCS; principal; 2017-08-27)
PROC: 3E033GC Introduction of Other Therapeutic Substance into Peripheral Vein, Percutaneous Approach (ICD-10-PCS; 2017-08-27)
DX: H81.399 Other peripheral vertigo, unspecified ear (principal); M35.9 Systemic involvement of connective tissue, unspecified; R51 Headache; H20.9 Unspecified iridocyclitis
CPT/HCPCS: 36415; 70450-TC; 70544-TC; 70547-TC; 70551-TC; 71046-TC-FY; 80053; 80307; 81003; 81015; 83735; 84100; 85025; 85651; 86038; 86140; 86162; 86225; 86431; 87040; 87086; 93005; 93010; 99285-25; G0378; J0131; J7030

== ENCOUNTER → 2017-09-14 | Day surgery (SDC) | payer OTHER | END | disposition home or self-care (01) | LOC: JRADIR 11:41 | PROVIDERS: ATTEND Internal Medicine | PROC: 02HV33Z Insertion of Infusion Device into Superior Vena Cava, Percutaneous Approach (ICD-10-PCS; principal; 2017-09-14) | PROC: B518ZZA Fluoroscopy of Superior Vena Cava, Guidance (ICD-10-PCS; 2017-09-14) | DX: D72.829 Elevated white blood cell count, unspecified (principal) | CPT/HCPCS: 36569; 77001-TC-FY; C1751 ==

== ENCOUNTER 2020-04-14 20:36 | Emergency (ER) | payer BC, OTHER ==
[2020-04-14 20:54] VITALS: TEMP 98.6; BMI 28.5
[2020-04-14 22:53] LABS: BASO % 0.4 % (0-2.0); EOS % 4.9 % (0-4.5); HEMATOCRIT 47.8 % (35.4-49); HEMOGLOBIN 16.3 GM/dL (11.7-16.9); LYMPH % 34.6 % (8-40); MCH 31.3 pg (25.7-33.7); MCHC 34.1 g/dl (32.0-35.9); MEAN CELL VOLUME 91.9 fl (80-96); MEAN PLT VOLUME 9.3 fl (7.5-11.1); MONO % 5.6 % (3.8-10.2); NEUT % 54.5 % (42.8-82.8); PLATELET COUNT 235 K/MM3 (134-434); RDW 12.7 % (11.9-15.9); WHITE BLOOD COUNT 8.3 K/mm3 (4.0-10.0)
[2020-04-14 23:13] LABS: CHLORIDE 105 mmol/L (98-107); SODIUM 139 mmol/L (136-145)
[2020-04-14 23:14] LABS: CALCIUM 9.3 mg/dL (8.5-10.1)
[2020-04-14 23:15] LABS: ALBUMIN 4.6 g/dl (3.4-5.0); ANION GAP 9 MMOL/L (8-16); CO2 25 mmol/L (21-32); GLUCOSE,RANDOM 81 mg/dL (74-106)
[2020-04-14 23:18] LABS: CREATININE 0.9 mg/dL (0.55-1.3); SGOT/AST 20 U/L (15-37); SGPT/ALT 20 U/L (13-61)
[2020-04-14 23:20] LABS: TOT PROT 7.9 g/dl (6.4-8.2)
[2020-04-14 23:21] LABS: ALK PHOS 60 U/L (45-117)
[2020-04-14] MEDS ORDERED: ASPIRIN 81 MG CHEWABLE TABLETS PO ONE (23:29)
[2020-04-14 23:32] LABS: BILIRUBIN,TOTAL 0.8 mg/dL (0.2-1)
[2020-04-14] MEDS ORDERED: ASPIRIN 81 MG CHEWABLE TABLETS ONE (23:45)
[2020-04-14 23:56] VITALS: BP 158/67; PULSE 82
== END 2020-04-14 23:56 | disposition home or self-care (01) ==
LOC: JER 20:36
DX: R07.9 Chest pain, unspecified (principal)
CPT/HCPCS: 36415; 71046-TC-FY; 80053; 82550; 84484; 85025; 93005; 93010; 99285-25